=== PATIENT | male | born 1990 | race Caucasian/White ===

== ENCOUNTER 2016-05-02 11:11 | Emergency (ER) | payer MEDICAID, SELFPAY ==
[2016-05-02] MEDS ORDERED: hydrOXYzine 25 MG TAB ONE (12:35)
[2016-05-02] MEDS ORDERED: KETOROLAC 60 MG/2 ML VIAL IM ONE (12:35)
== END 2016-05-02 14:28 | disposition home or self-care (01) ==
LOC: ER 11:11
DX: F22 Delusional disorders (principal); R44.3 Hallucinations, unspecified; F41.1 Generalized anxiety disorder; Z79.899 Other long term (current) drug therapy; F17.210 Nicotine dependence, cigarettes, uncomplicated
CPT/HCPCS: 36415; 80053; 80307; 80320; 80329; 81003; 84439; 84443; 85025; 85610; 96372